=== PATIENT | female | born 1990 | race Caucasian/White ===

== ENCOUNTER 2017-11-04 16:46 | Inpatient (IN) | payer OTHER ==
[~2017-11-04] VITALS: Ht 165.1 cm; Wt 92.5 kg
[2017-11-04 17:32] VITALS: BP 132/89
[2017-11-04 18:13] LABS: BASOPHIL (%) 0.1 % (0-1); EOSINOPHIL (%) 0.3 % (0-5); HEMATOCRIT 33.9 % (36.0-46.0); HEMOGLOBIN 11.4 G/DL (11.9-15.5); LYMPHOCYTE (%) 16.1 % (15-42); LYMPHOCYTE COUNT 1.7 K/uL (1.0-2.8); MCH 28.5 PG (29.0-34.0); MCHC 33.6 G/DL (30.0-36.0); MCV 84.8 FL (83-99); MONOCYTE (%) 5.3 % (3-12); MONOCYTE COUNT 0.6 K/uL (0-0.8); NEUTROPHIL (%) 77.2 % (45-76); NEUTROPHIL COUNT 8.3 K/uL (1.8-6.4); PLATELET COUNT 251 K/uL (156-360); RBC DIS.WIDTH-CV 13.1 % (11.8-14.6); WHITE BLOOD COUNT 10.7 K/uL (4.1-10.2)
[2017-11-04 19:18] VITALS: BP 136/82
[2017-11-04] MEDS ORDERED: PRENATABS FA T1 EACH PO (20:19)
[2017-11-04] MEDS ORDERED: ASPIR 8181 M1 PO (20:20)
[2017-11-04 20:38] VITALS: BP 140/82
[2017-11-04 21:26] VITALS: BP 130/78
[2017-11-04 22:14] VITALS: BP 109/60
[2017-11-04 23:27] VITALS: BP 138/88
[2017-11-05] VITALS (30 sets, daily range): BP systolic 104–165; BP diastolic 59–106
[2017-11-06 15:18] VITALS: BP 132/79
[2017-11-06 22:37] VITALS: BP 132/75
[2017-11-07] MEDS ORDERED: IBUPROFEN800 MG PO (09:05)
== END 2017-11-07 13:32 | disposition home or self-care (01) | DRG 774 ==
LOC: LDRP-OP 16:46 → 2WEST 16:47
PROVIDERS: Obstetrics & Gynecology Obstetrics
PROC: 3E0P7GC Introduction of Other Therapeutic Substance into Female Reproductive, Via Natural or Artificial Opening (ICD-10-PCS; 2017-11-04)
PROC: 10E0XZZ Delivery of Products of Conception, External Approach (ICD-10-PCS; principal; 2017-11-05)
PROC: 0KQM0ZZ Repair Perineum Muscle, Open Approach (ICD-10-PCS; 2017-11-05)
PROC: 10907ZC Drainage of Amniotic Fluid, Therapeutic from Products of Conception, Via Natural or Artificial Opening (ICD-10-PCS; 2017-11-05)
PROC: 3E0S3BZ Introduction of Anesthetic Agent into Epidural Space, Percutaneous Approach (ICD-10-PCS; 2017-11-05)
DX: O99.344 Other mental disorders complicating childbirth (principal); O10.02 Pre-existing essential hypertension complicating childbirth; O41.03X1 Oligohydramnios, third trimester, fetus 1; F33.9 Major depressive disorder, recurrent, unspecified; Z3A.39 39 weeks gestation of pregnancy; Z37.0 Single live birth; O99.824 Streptococcus B carrier state complicating childbirth; F41.9 Anxiety disorder, unspecified; O12.04 Gestational edema, complicating childbirth; M54.9 Dorsalgia, unspecified; O26.893 Other specified pregnancy related conditions, third trimester; O36.8131 Decreased fetal movements, third trimester, fetus 1; E66.9 Obesity, unspecified; O99.214 Obesity complicating childbirth; Z79.82 Long term (current) use of aspirin; Z68.34 Body mass index [BMI] 34.0-34.9, adult; Z80.8 Family history of malignant neoplasm of other organs or systems; Z80.6 Family history of leukemia; Z83.3 Family history of diabetes mellitus; Z80.3 Family history of malignant neoplasm of breast
CPT/HCPCS: 85025; C1755; G0378; J0595; J2540; J3010; J7120

== ENCOUNTER 2018-04-19 15:20 | Emergency (ER) | payer OTHER ==
[~2018-04-19] VITALS: Ht 165.1 cm; Wt 74.6 kg
[~2018-04-19 15:20] MED LIST: ASPIR 8181 M1 PO; IBUPROFEN800 MG PO; PRENATABS FA T1 EACH PO
[2018-04-19] MEDS ORDERED: DICLOXACILLIN500 MG PO (19:06)
[2018-04-19 19:13] VITALS: BP 138/87
== END 2018-04-19 19:15 | disposition home or self-care (01) ==
LOC: EME 15:20
DX: O91.23 Nonpurulent mastitis associated with lactation (principal); Z79.82 Long term (current) use of aspirin
CPT/HCPCS: 99281; 99283